=== PATIENT | female | born 1935 | race Caucasian/White ===

== ENCOUNTER → 2016-12-18 | Outpatient (CLI) | payer MEDICARE ==
[~2016-12-18] VITALS: Ht 160 cm; Wt 63.5 kg
[~2016-12-18] MED LIST: ASPI81TA85 PO; ATEN25TA PO; CALC625T PO; GLIP5TAB15 PO; LOMO2.5T PO; METF500T PO; NABU50TA PO; PROPOFOL 200 MG/20 ML VIAL As Ordered ONE; SIMV40TA2 PO; ZYRT10TA2 PO
--- NOTE | 2016-12-18 09:01 | ROOR ---
Patient Name: Maria C Brandt Procedure Date: 12/18/2016 8:44 AM Date of : 1935 Age: 81 Room: [facility] Gender: Female Note Status: Finalized Procedure: Colonoscopy Indications: Screening for colorectal malignant neoplasm, Incidental change in bowel habits noted Providers: David OBRIEN MD Referring MD: Clementine HARRIS MD Requesting Provider: Medicines: Monitored Anesthesia Care Complications: No immediate complications. Procedure: Pre-Anesthesia Assessment: - The heart rate, respiratory rate, oxygen saturations, blood pressure, adequacy of pulmonary ventilation, and response to care were monitored throughout the procedure. The Colonoscope was introduced through the anus and advanced to 6 cm into the ileum. The colonoscopy was performed without difficulty. The patient tolerated the procedure well. The quality of the bowel preparation was good. Findings: The perianal and digital rectal examinations were normal. (Exam: Complete, Prep: Good or Excellent.) A 5 mm polyp was found in the splenic flexure. The polyp was sessile. The polyp was removed with a cold snare. Resection and retrieval were complete. A few small-mouthed diverticula were found in the sigmoid colon. The exam was otherwise without abnormality on direct and retroflexion views. The terminal ileum appeared normal. Biopsies for histology were taken with a cold forceps for evaluation of microscopic colitis. Impression: - One 5 mm polyp at the splenic flexure, removed with a cold snare. Resected and retrieved. - Mild diverticulosis in the sigmoid colon. - The colon examination was otherwise normal on direct and retroflexion views. - The examined portion of the ileum was normal. - Biopsies were taken with a cold forceps for evaluation of microscopic colitis. Recommendation: - Repeat colonoscopy in 5 years for surveillance. David Obrien MD David OBRIEN MD 12/18/2016 9:01:38 AM This report has been signed electronically. Number of Addenda: 0 Note Initiated On: 12/18/2016 8:44 AM Estimated Blood Loss: Estimated blood loss: none.
[2016-12-18 09:15] VITALS: BP 121/81
== END | disposition home or self-care (01) ==
LOC: M OPP 07:44
PROVIDERS: ATTEND Internal Medicine Gastroenterology
DX: Z12.11 Encounter for screening for malignant neoplasm of colon (principal); D12.3 Benign neoplasm of transverse colon; K57.30 Diverticulosis of large intestine without perforation or abscess without bleeding; R19.4 Change in bowel habit; I10 Essential (primary) hypertension; E78.5 Hyperlipidemia, unspecified; E11.9 Type 2 diabetes mellitus without complications; K58.9 Irritable bowel syndrome, unspecified; R12 Heartburn; M19.90 Unspecified osteoarthritis, unspecified site; G47.30 Sleep apnea, unspecified; R06.83 Snoring; M81.0 Age-related osteoporosis without current pathological fracture; R51 Headache; Z78.0 Asymptomatic menopausal state; R06.02 Shortness of breath; Z88.5 Allergy status to narcotic agent; Z79.82 Long term (current) use of aspirin; Z79.84 Long term (current) use of oral hypoglycemic drugs; Z79.899 Other long term (current) drug therapy

== ENCOUNTER → 2021-06-27 | Outpatient (REF) | payer MEDICARE ==
[~2021-06-27] MED LIST changes: -ASPI81TA85 PO; +ASPI81TA86 PO; -CALC625T PO; +CALC625T3 PO; -GLIP5TAB15 PO; +GLIP5TAB20 PO; -METF500T PO; +METF500T13 PO; +NABU-71 PO; -NABU50TA PO; -PROPOFOL 200 MG/20 ML VIAL As Ordered ONE; -SIMV40TA2 PO; +SIMV40TA20 PO; +ZYRT10CA5 PO; -ZYRT10TA2 PO
[2021-06-27 19:29] LABS: CREATININE, URINE 96.9 MG/DL; MALB URINE SIEMENS 16.9 MG/L; MAU/CREAT RATIO 17.4 MCG/MG (0.0-30.0)
== END ==
LOC: M LAB REF 17:07
PROVIDERS: ATTEND Nurse Practitioner Family
DX: E11.65 Type 2 diabetes mellitus with hyperglycemia (principal)